=== PATIENT | male | born 1985 | race Caucasian/White ===

== ENCOUNTER 2016-11-29 19:24 | Emergency (ER) | payer BC, OTHER ==
[2016-11-29 19:41] VITALS: BP 135/91; PULSE 98; TEMP 98.4; BMI 24.4
[2016-11-29] MEDS ORDERED: SODIUM CHLORIDE 1,000 ML IV STA (20:03)
[2016-11-29] MEDS ORDERED: METOCLOPRAMIDE HCL INJECTION 10 MG/2 ML VIAL IVPB ONE (20:03)
--- NOTE | 2016-11-29 20:19 | PDOC ---
History of Present Illness - General Chief Complaint: Substance Abuse Stated Complaint: NOT FEELING GOOD Time Seen by Provider: 11/29/16 19:56 History Source: Patient Exam Limitations: No Limitations - History of Present Illness Initial Comments: 11/29/16 20:14 31yo Male patient w/ PmHx: Seizures, presents to ED c/o feeling funny after consuming "shrooms" (Mushrooms w drug Psilocin and Psilocybin) today around 6pm. Patient states he is concerns with how he is feeling because of his history of seizures. Associated nausea. Reports drug use daily: Marijuana to "manage seizures." Patient denies CP, Abd pain, vomiting/diarrhea, fever, back pain, confusion, disorientation, diff breathing, or any other complaints at this time. Timing/Duration: 4-6 hours Associated Symptoms: denies: denies symptoms, chest pain, cough, diaphoresis, fever/chills, headaches, loss of appetite, malaise, nausea/vomiting, rash, seizure, shortness of breath, syncope, weakness, other Past History - Travel Traveled outside of the country in the last 30 days: No Close contact w/someone who was outside of country & ill: No - Past Medical History Allergies/Adverse Reactions: Allergies Allergy/AdvReac Type Severity Reaction Status Date / Time codeine Allergy Verified 11/29/16 19:38 Home Medications: Ambulatory Orders Clonazepam [Klonopin] 1 mg PO TID 10/11/15 Docusate Sodium [Colace -] 100 mg PO BID PRN #60 capsule 12/10/15 Lamotrigine [LaMICtal -] 100 mg PO BID #60 tablet 12/10/15 Oxycodone HCl/Acetaminophen [Percocet 5-325 mg Tablet] 1 - 2 tab PO Q6H #30 tab MDD 4 12/10/15 Psychiatric Problems: Yes (anxiety, BIPOLAR) 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) Thyroid Disease: No Lung CA: (DENIES) - Immunization History Td Vaccination: Yes TDAP Vaccination: Yes (07/02/13) Immunization Up to Date: Yes - Psycho/Social/Smoking Cessation Hx Anxiety: Yes Suicidal Ideation: No Smoking Status: No Smoking History: Never smoked Years of Tobacco Use: 0 Have you smoked in the past 12 months: No Number of Cigarettes Smoked Daily: 1 If you are a former smoker, when did you quit?: 2000 Cigars Per Day: 0 'Breaking Loose' booklet given: 11/01/15 Hx Alcohol Use: No Drug/Substance Use Hx: Yes Substance Use Type: None Review of Systems - Review of Systems Able to Perform ROS?: Yes Is the patient limited Italian proficient: No Constitutional: Yes: Other ("Feeling Funny"). No: Chills, Fever, Weakness HEENTM: Yes: Other (Dry Mouth). No: Nose Congestion, Nose Bleeding, Mouth Pain , Difficulty Swallowing, Mouth Swelling Respiratory: No: Cough, Shortness of Breath, Stridor, Wheezing, Productive cough Cardiac (ROS): No: Chest Pain, Lightheadedness, Palpitations, Syncope, Chest Tightness ABD/GI: Yes: Nausea. No: Constipated, Diarrhea, Poor Appetite, Poor Fluid Intake, Vomiting : No: Dysuria, Flank Pain, Hematuria Musculoskeletal: No: Back Pain Integumentary: No: Erythema, Pruritus, Rash, Sweating Neurological: Yes: Seizure (History of). No: Headache, Weakness, Unsteady Gait , Ataxia Psychiatric: Yes: Anxiety All Other Systems: Reviewed and Negative *Physical Exam - Vital Signs Last Vital Signs Temp Pulse Resp BP Pulse Ox 98.4 F 98 H 20 135/91 95 11/29/16 19:39 11/29/16 19:39 11/29/16 19:39 11/29/16 19:39 11/29/16 19:39 - Physical Exam General Appearance: Yes: Nourished, Appropriately Dressed. No: Apparent Distress, Mild Distress, Moderate Distress, Severe Distress HEENT: positive: EOMI, PRANAV (Pupils Dilated 5mm), Normal ENT Inspection, Normal Voice, Symmetrical, TMs Normal, Pharynx Normal. negative: Pharyngeal Erythema, Tonsillar Exudate, Tonsillar Erythema, Nasal Congestion, Rhinorrhea, TM Bulging , TM Dull, TM Erythema Neck: positive: Trachea midline, Normal Thyroid, Supple. negative: Stridor, Lymphadenopathy (R), Lymphadenopathy (L) Respiratory/Chest: positive: Lungs Clear, Normal Breath Sounds. negative: Respiratory Distress, Accessory Muscle Use, Labored Respiration, Rapid RR, Rhonchi, Stridor, Wheezing Cardiovascular: positive: Regular Rhythm, Regular Rate Gastrointestinal/Abdominal: positive: Normal Bowel Sounds, Flat, Soft. negative : Distended, Guarding, Rebound, Tenderness Musculoskeletal: positive: Normal Inspection. negative: CVA Tenderness Extremity: positive: Normal Capillary Refill, Normal Inspection, Normal Range of Motion. 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 Labs WNL. Patient up walking around in hallway. No acute distress noted. *DC/Admit/Observation/Transfer Diagnosis at time of Disposition: Substance abuse, daily use - Discharge Dispostion Disposition: HOME Condition at time of disposition: Improved Admit: No - Patient Instructions Printed Discharge Instructions: DI for Anxiety -- Adult Additional Instructions: FOLLOW UP WITH YOUR PRIMARY CARE PROVIDER THIS WEEK FOR FURTHER EVALUATION. RETURN IF SYMPTOMS WORSEN OR ANY CONCERNS FOR FURTHER EVALUATION. STOP USING RECREATIONAL DRUGS WITH YOUR HISTORY OF SEIZURES, THIS CAN PRECIPITATE AN ATTACK. Print Language: ALBANIAN
[2016-11-29 20:30] LABS: BASOPHIL 0.3 % (0-2.0); EOSINOPHIL 0.1 % (0-4.5); MCH 31.1 pg (25.7-33.7); MCHC 34.2 g/dl (32.0-35.9); MEAN CELL VOLUME 90.8 fl (80-96); MEAN PLT VOLUME 8.3 fl (7.5-11.1); NEUTROPHILS 86.8 % (42.8-82.8); PLATELET COUNT 230 K/MM3 (134-434); RDW 13.1 % (11.9-15.9); WHITE BLOOD COUNT 14.7 K/mm3 (4.0-10.0)
[2016-11-29] MEDS ORDERED: METOCLOPRAMIDE HCL INJECTION 10 MG/2 ML VIAL ONE (20:30)
[2016-11-29 20:33] LABS: URINE APPEARANCE CLEAR; URINE BILIRUBIN NEGATIVE (NEGATIVE); URINE BLOOD NEGATIVE (NEGATIVE); URINE COLOR LTYELLOW; URINE GLUCOSE (UA) NEGATIVE (NEGATIVE); URINE KETONE NEGATIVE (NEGATIVE); URINE LEUK ESTERASE NEGATIVE (NEGATIVE); URINE NITRITE NEGATIVE (NEGATIVE); URINE PROTEIN NEGATIVE (NEGATIVE); URINE UROBILINOGEN NEGATIVE E.U./dl (0.2-1.0)
[2016-11-29 21:06] LABS: URINE MARIJUANA THC POSITIVE ng/ml (CUTOFF=50)
[2016-11-29 21:16] LABS: ALBUMIN 4.7 g/dl (3.4-5.0); AMYLASE 54 U/L (25-115); ANION GAP 9 (8-16); CALCIUM 9.2 mg/dL (8.5-10.1); CO2 29 mmol/L (21-32); COCKROFT - GAULT 152.96; CREATININE 0.8 mg/dL (0.7-1.3); GLUCOSE,RANDOM 116 mg/dL (74-106); SGOT/AST 17 U/L (15-37); SGPT/ALT 26 U/L (12-78)
[2016-11-29 21:18] LABS: ALK PHOS 106 U/L (45-117); BILIRUBIN,TOTAL 0.3 mg/dL (0.2-1.0); TOT PROT 8.1 g/dl (6.4-8.2)
--- NOTE | 2016-11-30 12:27 | EKG ---
Test Reason : Blood Pressure : / mmHG Vent. Rate : 071 BPM Atrial Rate : 071 BPM P-R Int : 126 ms QRS Dur : 102 ms QT Int : 390 ms P-R-T Axes : 060 062 035 degrees QTc Int : 423 ms NORMAL SINUS RHYTHM EARLY REPOLARIZATION WHEN COMPARED WITH ECG OF 07-DEC-2015 18:29, NO SIGNIFICANT CHANGE WAS FOUND Confirmed by LUIS EDUARDO DAVALOS MD ([id number]) on 11/30/2016 12:26:38 PM Referred By: Confirmed By:LUIS EDUARDO DAVALOS MD
== END 2016-11-29 22:13 | disposition home or self-care (01) ==
LOC: JER 19:24
PROC: 3E033GC Introduction of Other Therapeutic Substance into Peripheral Vein, Percutaneous Approach (ICD-10-PCS; principal; 2016-11-29)
DX: F12.10 Cannabis abuse, uncomplicated (principal); Z86.69 Personal history of other diseases of the nervous system and sense organs
CPT/HCPCS: 36415; 80053; 80307; 81003; 82150; 83690; 85025; 93005; 93010; 99282-25

== ENCOUNTER 2017-01-01 16:58 | Emergency (ER) | payer BC ==
[2017-01-01 17:02] VITALS: BP 123/86; PULSE 100; TEMP 98.2; BMI 23.7
[2017-01-01] MEDS ORDERED: SULFAMETHOXAZOLE/TRIMETHOPRIM 800MG/160MG D.S. TABLET PO ONE (17:32)
[2017-01-01] MEDS ORDERED: SULFAMETHOXAZOLE/TRIMETHOPRIM 800MG/160MG D.S. TABLET ONE ×2 (17:35→17:38)
--- NOTE | 2017-01-01 17:41 | PDOC ---
History of Present Illness - General Chief Complaint: Bite Stated Complaint: SPIDER BITE Time Seen by Provider: 01/01/17 17:03 History Source: Patient Exam Limitations: No Limitations - History of Present Illness Initial Comments: 01/01/17 17:34 31 yr male with c/o bites to left lower leg at work this am. 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 Pt has no history of MRSA, no medical history no allergies. Past History - Past Medical History Allergies/Adverse Reactions: Allergies Allergy/AdvReac Type Severity Reaction Status Date / Time codeine Allergy Verified 01/01/17 17:03 Home Medications: Ambulatory Orders Clonazepam [Klonopin] 1 mg PO TID 10/11/15 Docusate Sodium [Colace -] 100 mg PO BID PRN #60 capsule 12/10/15 Lamotrigine [LaMICtal -] 100 mg PO BID #60 tablet 12/10/15 Oxycodone HCl/Acetaminophen [Percocet 5-325 mg Tablet] 1 - 2 tab PO Q6H #30 tab MDD 4 12/10/15 Sulfamethoxazole/Trimethoprim [Bactrim Ds -] 1 tab PO BID #20 tablet 01/01/17 Psychiatric Problems: Yes (anxiety, BIPOLAR) 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) Thyroid Disease: No Lung CA: (DENIES) - Immunization History Td Vaccination: Yes TDAP Vaccination: Yes (07/02/13) Immunization Up to Date: Yes - Psycho/Social/Smoking Cessation Hx Anxiety: Yes Suicidal Ideation: No Smoking Status: No Smoking History: Never smoked Years of Tobacco Use: 0 Have you smoked in the past 12 months: No Number of Cigarettes Smoked Daily: 1 If you are a former smoker, when did you quit?: 2000 Cigars Per Day: 0 Information on smoking cessation initiated: No 'Breaking Loose' booklet given: 11/01/15 Hx Alcohol Use: No Drug/Substance Use Hx: Yes Substance Use Type: None *Physical Exam - Vital Signs Last Vital Signs Temp Pulse Resp BP Pulse Ox 98.2 F 100 H 18 123/86 98 01/01/17 16:59 01/01/17 16:59 01/01/17 16:59 01/01/17 16:59 01/01/17 16:59 - Physical Exam General Appearance: Yes: Nourished, Appropriately Dressed HEENT: positive: EOMI, PRANAV, Normal ENT Inspection, TMs Normal, Pharynx Normal Neck: positive: Supple. negative: Tender Respiratory/Chest: positive: Lungs Clear, Normal Breath Sounds Cardiovascular: positive: Regular Rhythm, Regular Rate Musculoskeletal: positive: Normal Inspection Extremity: positive: Normal Capillary Refill, Normal Range of Motion, Other ( left lateral lower leg with 2 papules erythematous well demarcated with white centers ) Integumentary: positive: Normal Color, Dry, Warm Neurologic: positive: pension adviser II-XII NML intact, Fully Oriented, Alert, Normal Mood/ Affect Medical Decision Making - Medical Decision Making 01/01/17 17:55 cc: spider bite 2 red raised papules to lower left leg with erythema , approximately 1cm and 2cm round. well demarcated with white centers raised no fever or chills, may be spider bite or MRSA infection will place on bactrim elevate apply warm compresses and return in 48hrs for wound check the areas have been marked with black marking pen, pt is aware to keep dry not to get wet or wash off pt understands the importance of strict follow up and to return sooner if any fever, chills redness streaking up the leg *DC/Admit/Observation/Transfer Diagnosis at time of Disposition: Cellulitis Qualifiers: Site of cellulitis: extremity Site of cellulitis of extremity: lower extremity Laterality: left Qualified Code(s): L03.116 - Cellulitis of left lower limb - Discharge Dispostion Disposition: HOME Condition at time of disposition: Good - Prescriptions Prescriptions: Sulfamethoxazole/Trimethoprim [Bactrim Ds -] 1 tab PO BID #20 tablet - Referrals Referrals: Crispin Gan MD [Primary Care Provider] - - Patient Instructions Printed Discharge Instructions: DI for Insect Bites and Stings Additional Instructions: apply warm compresses to the area of pain and swelling, elevate the leg and keep dry take the bactrim as directed for 10 days Return here ThursdayJanuary 03 for a wound check Return sooner if any fever, chills, redness spreading up your leg or any other concerns
== END 2017-01-01 18:00 | disposition home or self-care (01) ==
LOC: JERFT 16:58
DX: L03.116 Cellulitis of left lower limb (principal); Z87.891 Personal history of nicotine dependence; F41.9 Anxiety disorder, unspecified; F31.9 Bipolar disorder, unspecified
CPT/HCPCS: 99281-25

== ENCOUNTER 2018-04-15 17:16 | Emergency (ER) | payer BC ==
[2018-04-15 17:20] VITALS: BP 121/70; PULSE 83; TEMP 98; BMI 20.9
--- NOTE | 2018-04-15 17:38 | PDOC ---
History of Present Illness - General Chief Complaint: Wound Stated Complaint: RT LEG PAIN Time Seen by Provider: 04/15/18 17:29 History Source: Patient Exam Limitations: No Limitations - History of Present Illness Initial Comments: CHIEF COMPLAINT: 32 y/o afebrile male with right leg redness and pain. HISTORY OF PRESENT ILLNESS: The patient has a history of cellulitis on his legs and states he scratched one of the pimples on his right leg and now the area is swollen and raised. He denies fever, streaking. Vital signs on arrival are within normal limits. REVIEW OF SYSTEMS: GENERAL/CONSTITUTIONAL: No fever/chills. No weakness. No weight change. MUSCULOSKELETAL: +swelling and redness to right lower leg. No neck or back pain. SKIN: No rash or easy bruising. NEUROLOGIC: No headache, vertigo, loss of consciousness, or loss of sensation. PHYSICAL EXAM: GENERAL: The patient is awake, alert, and fully oriented, in no acute distress. HEAD: Normal with no signs of trauma. EXTREMITIES: Normal range of motion, no edema. 5cm in diameter raised area of erythema on right posterior proximal calf with central white head. scattered papules on b/l LEs. No streaking. NEUROLOGICAL: Normal speech, normal gait. CN II-XII grossly intact. SKIN: Warm, dry, normal turgor, no rashes or lesions noted. Past History - Past Medical History Allergies/Adverse Reactions: Allergies Allergy/AdvReac Type Severity Reaction Status Date / Time codeine Allergy Verified 04/15/18 17:17 Home Medications: Ambulatory Orders Clonazepam [Klonopin] 1 mg PO TID 10/11/15 Benzoyl Perox/Skin Clnsr/Emoll [Acnefree Severe Acne Clr Systm] 1 each TP DAILY #1 kit 04/15/18 Mupirocin Cream [Bactroban 2% Cream -] 1 applic TP BID #1 tube 04/15/18 Sulfamethoxazole/Trimethoprim [Bactrim Ds -] 1 tab PO BID #20 tablet 04/15/18 COPD: No Psychiatric Problems: Yes (anxiety, BIPOLAR) 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) Thyroid Disease: No Lung CA: (DENIES) - Immunization History Td Vaccination: Yes TDAP Vaccination: Yes (07/02/13) Immunization Up to Date: Yes - Suicide/Smoking/Psychosocial Hx Smoking Status: No Smoking History: Former smoker Years of Tobacco Use: 0 Have you smoked in the past 12 months: No Number of Cigarettes Smoked Daily: 1 If you are a former smoker, when did you quit?: 2000 Cigars Per Day: 0 Information on smoking cessation initiated: No 'Breaking Loose' booklet given: 11/01/15 Hx Alcohol Use: No Drug/Substance Use Hx: Yes Substance Use Type: None *Physical Exam - Vital Signs Last Vital Signs Temp Pulse Resp BP Pulse Ox 98 F 83 16 121/70 98 04/15/18 17:16 04/15/18 17:16 04/15/18 17:16 04/15/18 17:16 04/15/18 17:16 Medical Decision Making - Medical Decision Making A/P: 32 y/o male right leg folliculitis and cellulitis. Plan is to d/c with rx for bacitracin, bactroban and benzol peroxide wash. Instructed him to try to keep legs dry, follow up with Dr. Gan in 1 week and return to the ER with any worsening or concerning symptoms. The patient verbalizes understanding of all instructions, has no further questions and is awaiting discharge. *DC/Admit/Observation/Transfer Diagnosis at time of Disposition: Folliculitis Cellulitis Qualifiers: Site of cellulitis: extremity Site of cellulitis of extremity: lower extremity Laterality: right Qualified Code(s): L03.115 - Cellulitis of right lower limb - Discharge Dispostion Disposition: HOME Condition at time of disposition: Good - Prescriptions Prescriptions: Benzoyl Perox/Skin Clnsr/Emoll [Acnefree Severe Acne Clr Systm] 1 each TP DAILY #1 kit Mupirocin Cream [Bactroban 2% Cream -] 1 applic TP BID #1 tube Sulfamethoxazole/Trimethoprim [Bactrim Ds -] 1 tab PO BID #20 tablet - Referrals Referrals: Crispin Gan MD [Primary Care Provider] - - Patient Instructions Printed Discharge Instructions: DI for Cellulitis -- Adult, DI for Folliculitis Additional Instructions: Discharge Instructions: -3 prescriptions have been sent to your pharmacy; please use as directed -Try not to scratch the rash on your legs -Try to keep your legs dry -Follow up with your doctor in 1 week -Return to the ER with any worsening or concerning symptoms - Post Discharge Activity
== END 2018-04-15 17:49 | disposition home or self-care (01) ==
LOC: JERFT 17:16
DX: L03.115 Cellulitis of right lower limb (principal); L73.8 Other specified follicular disorders; F31.9 Bipolar disorder, unspecified; F41.9 Anxiety disorder, unspecified; Z87.820 Personal history of traumatic brain injury; R56.1 Post traumatic seizures; Z87.891 Personal history of nicotine dependence
CPT/HCPCS: 99281-25

== ENCOUNTER 2018-04-29 17:18 | Emergency (ER) | payer BC ==
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
[2018-04-29 17:48] VITALS: BP 143/96; PULSE 108; TEMP 98; BMI 20.9
[2018-04-29] MEDS ORDERED: DIPHTH,PERTUSS(ACELL),TET 0.5 ML DISP.SYRIN IM ONE (18:28)
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
== END 2018-04-29 18:58 | disposition home or self-care (01) ==
LOC: JER 17:18 → JERFT 17:18
PROC: 3E0234Z Introduction of Serum, Toxoid and Vaccine into Muscle, Percutaneous Approach (ICD-10-PCS; principal; 2018-04-29)
PROC: 0CQ0XZZ Repair Upper Lip, External Approach (ICD-10-PCS; 2018-04-29)
DX: S01.511A Laceration without foreign body of lip, initial encounter (principal); V49.59XA Passenger injured in collision with other motor vehicles in traffic accident, initial encounter; Y92.410 Unspecified street and highway as the place of occurrence of the external cause; Y93.89 Activity, other specified; Y99.8 Other external cause status
CPT/HCPCS: 90715; 99281-25

== ENCOUNTER 2018-05-06 10:39 | Emergency (ER) | payer BC ==
[2018-05-06 10:44] VITALS: BP 115/76; PULSE 100; TEMP 97.5; BMI 22.3
--- NOTE | 2018-05-06 11:21 | PDOC ---
Suture Removal/Wound Check HPI - History of Present Illness Chief Complaint: Suture/Staple Removal(Here) Stated Complaint: STAPLE/SUTURE REMOVAL (HERE) Time Seen by Provider: 05/06/18 11:09 History Source: Yes: Patient Treated at: [facility] ED - Previous ED Treatment Type of procedure performed on last visit: Yes: Laceration Repair Tetanus Immunization: Yes: Given at last ED visit Past History - Past Medical History Allergies/Adverse Reactions: Allergies Allergy/AdvReac Type Severity Reaction Status Date / Time codeine Allergy Verified 05/06/18 10:40 Home Medications: Ambulatory Orders Clonazepam [Klonopin] 1 mg PO TID 10/11/15 Chlorhexidine Gluconate [Peridex -] 15 ml MM BID #7 cup 05/06/18 COPD: No Psychiatric Problems: Yes (anxiety, BIPOLAR) 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) Thyroid Disease: No Lung CA: (DENIES) - Immunization History Td Vaccination: Yes TDAP Vaccination: Yes (07/02/13) Immunization Up to Date: Yes - Suicide/Smoking/Psychosocial Hx Smoking Status: No Smoking History: Never smoked Years of Tobacco Use: 0 Have you smoked in the past 12 months: No Number of Cigarettes Smoked Daily: 1 If you are a former smoker, when did you quit?: 2000 Cigars Per Day: 0 Information on smoking cessation initiated: No 'Breaking Loose' booklet given: 11/01/15 Hx Alcohol Use: No Drug/Substance Use Hx: Yes (benzo,klonopin) Substance Use Type: None Suture Removal/Wound Check PE - Physical Exam Laceration/Wound Check Symptoms: reports: None Current Severity Level: Mild Pain Localization: None Location of Laceration/Wound: left: Mouth (wound erythematous with small amoutn drainage) *Review of Systems - Review of Systems Able to Perform ROS?: Yes HEENTM: Yes: Other (lip swelling. no facial edema/ erythema) *Physical Exam - Vital Signs Last Vital Signs Temp Pulse Resp BP Pulse Ox 97.5 F L 100 H 18 115/76 100 05/06/18 10:41 05/06/18 10:41 05/06/18 10:41 05/06/18 10:41 05/06/18 10:41 - Physical Exam General Appearance: Yes: Appropriately Dressed HEENT: positive: Other (sutures intact. wound approximated, erythema to the suture site. ) Medical Decision Making - Medical Decision Making 05/06/18 11:37 3 sutures removed from upper lip. wound erythematous with pus? no facial swelling. *DC/Admit/Observation/Transfer Diagnosis at time of Disposition: Visit for suture removal - Discharge Dispostion Disposition: HOME - Prescriptions Prescriptions: Chlorhexidine Gluconate [Peridex -] 15 ml MM BID #7 cup - Referrals Referrals: Crispin Gan MD [Primary Care Provider] - - Patient Instructions Printed Discharge Instructions: DI for Suture Removal Additional Instructions: rinse your mouth with peridex twice daily. follow up with your doctor or dentist for a wound check in 2-3 days. - Post Discharge Activity
== END 2018-05-06 11:29 | disposition home or self-care (01) ==
LOC: JERFT 10:39
DX: Z48.817 Encounter for surgical aftercare following surgery on the skin and subcutaneous tissue (principal); Z48.02 Encounter for removal of sutures
CPT/HCPCS: 99281-25

== ENCOUNTER 2018-07-21 18:23 | Emergency (ER) | payer BC ==
--- NOTE | 2018-07-21 18:33 | PDOC ---
Rapid Medical Evaluation Medical Evaluation: Allergies Allergy/AdvReac Type Severity Reaction Status Date / Time codeine Allergy Verified 05/06/18 10:40 07/21/18 18:28 I have performed a brief in-person evaluation of this patient. The patient presents with a chief complaint of: L hip pain s/p fall today. H/o seizures, anxiety, substance abuse Pertinent physical exam findings: appears somnolent at triage (took klonopin tonight) I have ordered the following:hip film The patient will proceed to the ED for further evaluation 07/21/18 18:38 Discharge Disposition - Diagnosis Hip injury Qualifiers: Encounter type: initial encounter Laterality: left Qualified Code(s): S79.912A - Unspecified injury of left hip, initial encounter - Referrals - Patient Instructions - Post Discharge Activity
[2018-07-21 18:39] VITALS: BP 133/86; PULSE 97; TEMP 98; BMI 23.0
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
[2018-07-21] MEDS ORDERED: BACITRACIN 15 GM TUBE TOPICAL OINTMENT ONE (19:11)
[2018-07-21] MEDS ORDERED: BACITRACIN/POLYMYXIN B SULFATE 15 GM TUBE TP SCH (19:15)
== END 2018-07-21 19:24 | disposition home or self-care (01) ==
LOC: JERFT 18:23
DX: S79.912A Unspecified injury of left hip, initial encounter (principal); S30.1XXA Contusion of abdominal wall, initial encounter; Z87.891 Personal history of nicotine dependence; W18.39XA Other fall on same level, initial encounter; Y93.89 Activity, other specified; Y92.009 Unspecified place in unspecified non-institutional (private) residence as the place of occurrence of the external cause
CPT/HCPCS: 73523-TC-FY; 99281-25

== ENCOUNTER 2018-10-28 10:33 | Emergency (ER) | payer OTHER, BC ==
[2018-10-28 10:38] VITALS: BP 133/89; PULSE 81; TEMP 98.6; BMI 24.4
[2018-10-28] MEDS ORDERED: IBUPROFEN 400 MG TABLET (FP) PO ONE ×2 (11:01→11:05)
--- NOTE | 2018-10-28 11:09 | PDOC ---
History of Present Illness - General Chief Complaint: Injury Stated Complaint: Injury/ Work Related Time Seen by Provider: 10/28/18 10:49 History Source: Patient Exam Limitations: Clinical Condition - History of Present Illness Initial Comments: 10/28/18 11:04 Patient with no significant past medical history present with complaint of superficial abrasion to left lower leg above ankle from a metal plate while at work today. Patient reported a metal plate fell hitting him in left leg and causing abrasion to the leg. Patient reported increased pain to lower leg with ambulation. Last tetanus vaccine was 4 years ago. Denies any other symptoms Timing/Duration: 1-3 hours Past History - Past Medical History Allergies/Adverse Reactions: Allergies Allergy/AdvReac Type Severity Reaction Status Date / Time codeine Allergy Verified 10/28/18 10:38 Opioids - Morphine Analogues Allergy Verified 10/28/18 10:38 Opioids-Meperidine and Allergy Verified 10/28/18 10:38 Related Opioids-Methadone and Related Allergy Verified 10/28/18 10:38 Home Medications: Ambulatory Orders Clonazepam [Klonopin] 1 mg PO TID 10/11/15 Chlorhexidine Gluconate [Peridex -] 15 ml MM BID #7 cup 05/06/18 Cephalexin Monohydrate [Keflex -] 500 mg PO BID 7 Days #14 capsule 10/28/18 Mupirocin Ointment [Bactroban 2% Ointment -] 1 applic TP BID #1 tube 10/28/18 COPD: No Psychiatric Problems: Yes (anxiety, BIPOLAR) 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) Thyroid Disease: No Lung CA: (DENIES) - Immunization History Td Vaccination: Yes TDAP Vaccination: Yes (07/02/13) Immunization Up to Date: Yes - Suicide/Smoking/Psychosocial Hx Smoking Status: No Smoking History: Never smoked Years of Tobacco Use: 0 Have you smoked in the past 12 months: No Number of Cigarettes Smoked Daily: 1 If you are a former smoker, when did you quit?: 2000 Cigars Per Day: 0 Information on smoking cessation initiated: No 'Breaking Loose' booklet given: 11/01/15 Hx Alcohol Use: No Drug/Substance Use Hx: No Substance Use Type: None Review of Systems - Review of Systems Able to Perform ROS?: Yes Is the patient limited [place]an proficient: No Constitutional: No: Weakness HEENTM: No: Symptoms Reported Respiratory: No: Symptoms reported Cardiac (ROS): No: Symptoms Reported Musculoskeletal: Yes: Symptoms Reported, See HPI, Muscle Pain (left lower leg), Other (abrasion to medial aspect of left lower leg above ankle) Integumentary: Yes: See HPI, Other (superficial linear abrasion to medial aspect of left lower leg) *Physical Exam - Vital Signs Last Vital Signs Temp Pulse Resp BP Pulse Ox 98.6 F 81 17 133/89 100 10/28/18 10:36 10/28/18 10:36 10/28/18 10:36 10/28/18 10:36 10/28/18 10:36 - Physical Exam Comments: 10/28/18 11:07 GENERAL: Well developed, well nourished. Awake and alert. No acute distress. CARDIOVASCULAR: Regular rate and rhythm. No murmurs, rubs, or gallops. PULMONARY: No evidence of respiratory distress. Lungs clear to auscultation bilaterally. No wheezing, rales or rhonchi. ABDOMINAL: Soft. Non-tender. Non-distended. No rebound or guarding. No organomegaly. Normoactive bowel sounds MUSCULOSKELETAL : mild tenderness over medial aspect of left lower leg above ankle with 4 cm linear superficial abrasion to medial aspect of left lower leg. No bleeding from abrasion site. No bony deformities SKIN: Warm and dry. Normal capillary refill. 4 cm linear superficial abrasion to medial aspect of left lower leg above ankle without bleeding.. NEUROLOGICAL: Alert, awake, appropriate. No motor deficits in the lower extremities. Gait is normal without ataxia. PSYCHIATRIC: Cooperative. Good eye contact. Appropriate mood and affect. General Appearance: Yes: Nourished, Appropriately Dressed. No: Apparent Distress Moderate Sedation - Procedure Monitoring Vital Signs: Procedure Monitoring Vital Signs Temperature 98.6 F 10/28/18 10:36 Pulse Rate 81 10/28/18 10:36 Respiratory Rate 17 10/28/18 10:36 Blood Pressure 133/89 10/28/18 10:36 O2 Sat by Pulse Oximetry (%) 100 10/28/18 10:36 ED Treatment Course - RADIOLOGY Radiology Studies Ordered: Category Date Time Status LEG TIB/FIB-LEFT [RAD] Stat Radiology 10/28/18 11:01 Ordered Medical Decision Making - Medical Decision Making 10/28/18 11:09 Patient with no significant past medical history presenting with complaint of abrasion to left lower leg from a metal piece with pain to left lower leg from a metal piece hitting his left leg. Symptoms exam significant for 4 cm linear superficial abrasion to medial aspect of left lower leg medial aspect of Schilling of left leg without bleeding. Wound cleaned with Betadine and bacitracin applied to wound. Wound covered with adhesive bandage. X-ray of tib-fib ordered to rule out fracture. Patient be discharged home on Keflex antibiotics if negative x-ray for wound infection prophylaxis and topical bacitracin 10/28/18 11:18 X-ray of tib-fib shows no acute pathology. Patient stable for discharge *DC/Admit/Observation/Transfer Diagnosis at time of Disposition: Abrasion, left lower leg, initial encounter, Left leg pain - Discharge Dispostion Disposition: HOME Condition at time of disposition: Stable Decision to Admit order: No - Prescriptions Prescriptions: Cephalexin Monohydrate [Keflex -] 500 mg PO BID 7 Days #14 capsule Mupirocin Ointment [Bactroban 2% Ointment -] 1 applic TP BID #1 tube - Referrals Referrals: Crispin Gan MD [Primary Care Provider] - - Patient Instructions Printed Discharge Instructions: DI for Abrasion Additional Instructions: Your x-ray shows no fracture. Take Motrin as needed for pain. Take prescribed cream and apply to wound twice/day until completely healed. And take prescribed antibiotics and finish it. Follow-up with primary care as needed - Post Discharge Activity Forms/Work/School Notes: Back to Work
== END 2018-10-28 11:30 | disposition home or self-care (01) ==
LOC: JERFT 10:33
DX: S80.812A Abrasion, left lower leg, initial encounter (principal); W20.8XXA Other cause of strike by thrown, projected or falling object, initial encounter; Y93.89 Activity, other specified; Y92.69 Other specified industrial and construction area as the place of occurrence of the external cause; Y99.0 Civilian activity done for income or pay
CPT/HCPCS: 73590-TC-LT-FY; 99281-25

== ENCOUNTER 2018-11-06 00:26 | Emergency (ER) | payer BC, OTHER ==
[2018-11-06 00:38] VITALS: BP 133/96; PULSE 85; TEMP 98.2; BMI 23.3
[2018-11-06] MEDS ORDERED: CLINDAMYCIN 600MG PREMIX IVPB 600 MG/50 ML BAG IVPB ONE ×2 (00:44→01:17)
[2018-11-06] MEDS ORDERED: VANCOMYCIN 1,000 MG in DEXTROSE 5%-WATER - 250 ML IVPB ONE (00:44)
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
[2018-11-06] MEDS ORDERED: VANCOMYCIN 1 GRAM (PRE-DOCKED) 1,000 MG/250 ML BAG IVPB ONE (01:17)
[2018-11-06 01:22] LABS: BASO % 0.6 % (0-2.0); EOS % 0.5 % (0-4.5); HEMOGLOBIN 14.9 GM/dL (11.7-16.9); LYMPH % 17.3 % (8-40); MCH 32.4 pg (25.7-33.7); MCHC 34.5 g/dl (32.0-35.9); MEAN CELL VOLUME 93.8 fl (80-96); MEAN PLT VOLUME 7.4 fl (7.5-11.1); MONO % 7.9 % (3.8-10.2); NEUT % 73.7 % (42.8-82.8); PLATELET COUNT 239 K/MM3 (134-434); RBC 4.59 M/mm3 (4.00-5.60); RDW 12.4 % (11.9-15.9); WHITE BLOOD COUNT 10.6 K/mm3 (4.0-10.0)
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
[2018-11-06 02:17] LABS: ALBUMIN 4.5 g/dl (3.4-5.0); ALK PHOS 81 U/L (45-117); ANION GAP 9 MMOL/L (8-16); BILIRUBIN,TOTAL 0.3 mg/dL (0.2-1); BLOOD UREA NITROGEN 11 mg/dL (7-18); CALCIUM 9.1 mg/dL (8.5-10.1); CHLORIDE 105 mmol/L (98-107); CO2 23 mmol/L (21-32); CREATININE 0.8 mg/dL (0.55-1.3); GLUCOSE,RANDOM 102 mg/dL (74-106); POTASSIUM 4.1 mmol/L (3.5-5.1); SGOT/AST 21 U/L (15-37); SGPT/ALT 37 U/L (13-61); SODIUM 137 mmol/L (136-145); TOT PROT 7.9 g/dl (6.4-8.2)
== END 2018-11-06 02:25 | disposition home or self-care (01) ==
LOC: JER 00:26
PROC: 0HQBXZZ Repair Right Upper Arm Skin, External Approach (ICD-10-PCS; principal; 2018-11-06)
PROC: 3E03329 Introduction of Other Anti-infective into Peripheral Vein, Percutaneous Approach (ICD-10-PCS; 2018-11-06)
PROC: 3E03329 Introduction of Other Anti-infective into Peripheral Vein, Percutaneous Approach (ICD-10-PCS; 2018-11-06)
DX: S41.151A Open bite of right upper arm, initial encounter (principal); Y04.1XXA Assault by human bite, initial encounter; Y93.89 Activity, other specified; Y92.89 Other specified places as the place of occurrence of the external cause; Y99.8 Other external cause status
CPT/HCPCS: 36415; 80053; 85025; 99282-25

== ENCOUNTER 2018-11-13 13:41 | Emergency (ER) | payer BC ==
[2018-11-13 13:46] VITALS: BP 144/80; PULSE 73; TEMP 98.2; BMI 21.5
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
== END 2018-11-13 14:41 | disposition home or self-care (01) ==
LOC: JERFT 13:41
DX: Y04.1XXA Assault by human bite, initial encounter (principal); Y04.1XXD Assault by human bite, subsequent encounter; Y93.89 Activity, other specified; Y92.59 Other trade areas as the place of occurrence of the external cause; Y99.8 Other external cause status
CPT/HCPCS: 99281-25

== ENCOUNTER 2018-11-15 20:16 | Observation (INO) | payer BC ==
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
[2018-11-15] MEDS ORDERED: SODIUM CHLORIDE 1,000 ML IV STA (21:18)
[2018-11-15 22:28] LABS: BASO % 0.7 % (0-2.0); EOS % 2.1 % (0-4.5); HEMATOCRIT 40.6 % (35.4-49); HEMOGLOBIN 14.1 GM/dL (11.7-16.9); LYMPH % 25.8 % (8-40); MCH 32.8 pg (25.7-33.7); MCHC 34.6 g/dl (32.0-35.9); MEAN CELL VOLUME 94.8 fl (80-96); MEAN PLT VOLUME 7.6 fl (7.5-11.1); MONO % 7.3 % (3.8-10.2); NEUT % 64.1 % (42.8-82.8); PLATELET COUNT 287 K/MM3 (134-434); RBC 4.28 M/mm3 (4.00-5.60); RDW 12.9 % (11.9-15.9); WHITE BLOOD COUNT 8.8 K/mm3 (4.0-10.0)
[2018-11-15] MEDS ORDERED: VANCOMYCIN 1 GM in D5W (PRE-DOCKED) 1,000 MG/250 ML IVPB ONE (22:30)
[2018-11-15] MEDS ORDERED: PIPERACILLIN/TAZOBACTAM 4.5 GM VIAL IVPB ONE (22:30)
[2018-11-15 23:02] LABS: ALK PHOS 86 U/L (45-117); ANION GAP 8 MMOL/L (8-16); BILIRUBIN,TOTAL 0.2 mg/dL (0.2-1); BLOOD UREA NITROGEN 18 mg/dL (7-18); CALCIUM 8.9 mg/dL (8.5-10.1); CHLORIDE 100 mmol/L (98-107); CO2 31 mmol/L (21-32); GLUCOSE,RANDOM 128 mg/dL (74-106); POTASSIUM 4.1 mmol/L (3.5-5.1); SGOT/AST 21 U/L (15-37); SGPT/ALT 36 U/L (13-61); SODIUM 138 mmol/L (136-145); TOT PROT 7.1 g/dl (6.4-8.2)
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
[2018-11-15] MEDS ORDERED: VANCOMYCIN 1 GRAM (PRE-DOCKED) 1,000 MG/250 ML BAG IVPB ONE (23:52)
[2018-11-15] MEDS ORDERED: ACETAMINOPHEN 325 MG TABLET (FP) PO PRN (23:57)
[2018-11-16] MEDS ORDERED: clonazePAM 0.5 MG TABLET PO PRN (00:01)
[2018-11-16] MEDS: MUPIROCIN 2% TOPICAL OINTMENT 22 GM TUBE TP SCH ×3 (01:07→23:48)
[2018-11-16] MEDS ORDERED: PIPERACILLIN/TAZOB 4.5 GM 4.5 GM/100 ML BAG IVPB ONE (01:10)
[2018-11-16] MEDS: PIPERACILLIN/TAZOB 3.375 GM 3.375 GM in DEXTROSE 5%-WATER - 50 ML IVPB SCH ×3 (03:19→18:12)
[2018-11-16 07:24] LABS: BASO % 0.9 % (0-2.0); EOS % 2.1 % (0-4.5); HEMATOCRIT 38.5 % (35.4-49); HEMOGLOBIN 13.3 GM/dL (11.7-16.9); LYMPH % 28.5 % (8-40); MCH 32.6 pg (25.7-33.7); MCHC 34.6 g/dl (32.0-35.9); MEAN CELL VOLUME 94.2 fl (80-96); MEAN PLT VOLUME 7.6 fl (7.5-11.1); MONO % 8.9 % (3.8-10.2); NEUT % 59.6 % (42.8-82.8); PLATELET COUNT 248 K/MM3 (134-434); RBC 4.08 M/mm3 (4.00-5.60); RDW 12.6 % (11.9-15.9); WHITE BLOOD COUNT 6.6 K/mm3 (4.0-10.0)
[2018-11-16 07:50] LABS: ANION GAP 4 MMOL/L (8-16); BLOOD UREA NITROGEN 18 mg/dL (7-18); CALCIUM 8.8 mg/dL (8.5-10.1); CHLORIDE 103 mmol/L (98-107); CO2 31 mmol/L (21-32); CREATININE 0.9 mg/dL (0.55-1.3); GLUCOSE,RANDOM 92 mg/dL (74-106); MAGNESIUM 2.1 mg/dL (1.8-2.4); POTASSIUM 4.5 mmol/L (3.5-5.1); SODIUM 138 mmol/L (136-145)
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
[2018-11-16] MEDS ORDERED: PIPERACILLIN/TAZOB 3.375 GM 3.375 GM/50 ML BAG IVPB ONE ×2 (11:18→17:17)
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
[2018-11-16] MEDS ORDERED: VANCOMYCIN 1,000 MG in DEXTROSE 5%-WATER - 250 ML IVPB SCH (13:45)
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
[2018-11-16] MEDS ORDERED: VANCOMYCIN 1 GRAM (PRE-DOCKED) 1,000 MG/250 ML BAG IVPB ONE (14:11)
[2018-11-16] MEDS ORDERED: VANCOMYCIN 1 GM PREMIX - 1 GM/200 ML BAG IVPB ONE (17:00)
[2018-11-16] MEDS ORDERED: clonazePAM 0.5 MG TABLET ONE (17:15)
[2018-11-16] MEDS ORDERED: BACITRACIN 0.9 GM PACKET ONE (18:15)
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
[2018-11-16 22:43] VITALS: BMI 25.0
[2018-11-17] MEDS ORDERED: DEXTROSE 5%-WATER - 50 ML IVPB ONE ×3 (01:07→17:49)
[2018-11-17] MEDS ORDERED: PIPERACILLIN/TAZOBACTAM 3.375 GM VIAL IVPB ONE ×3 (01:07→17:49)
[2018-11-17] MEDS: PIPERACILLIN/TAZOB 3.375 GM 3.375 GM in DEXTROSE 5%-WATER - 50 ML IVPB SCH ×3 (01:50→18:51)
[2018-11-17] MEDS ORDERED: PT OWN MED DRAWER 7, Y5N ONE (03:51)
[2018-11-17] MEDS: VANCOMYCIN 1 GM PREMIX - 1 GM/200 ML BAG IVPB SCH ×2 (03:58→13:44)
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
[2018-11-17] MEDS: MUPIROCIN 2% TOPICAL OINTMENT 22 GM TUBE TP SCH ×2 (09:51→23:00)
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
[2018-11-18] MEDS ORDERED: PIPERACILLIN/TAZOBACTAM 3.375 GM VIAL IVPB ONE (00:57)
[2018-11-18] MEDS ORDERED: DEXTROSE 5%-WATER - 50 ML IVPB ONE (00:57)
[2018-11-18] MEDS: PIPERACILLIN/TAZOB 3.375 GM 3.375 GM in DEXTROSE 5%-WATER - 50 ML IVPB SCH (01:38)
[2018-11-18] MEDS: VANCOMYCIN 1 GM PREMIX - 1 GM/200 ML BAG IVPB SCH (01:40)
[2018-11-18] MEDS ORDERED: AMOX TR/POT CLAV 875MG/125MG TABLETS (FP) PO SCH (09:27)
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
[2018-11-18] MEDS: MUPIROCIN 2% TOPICAL OINTMENT 22 GM TUBE TP SCH (11:39)
[2018-11-18 12:55] VITALS: BP 123/75; PULSE 73; TEMP 97.8
== END 2018-11-18 12:45 | disposition home or self-care (01) ==
LOC: JER 20:16 → JERBED 23:38 → J8W 11-16 19:01
PROVIDERS: ADMIT Family Medicine; ATTEND Family Medicine
PROC: 3E03329 Introduction of Other Anti-infective into Peripheral Vein, Percutaneous Approach (ICD-10-PCS; principal; 2018-11-15)
PROC: 3E0337Z Introduction of Electrolytic and Water Balance Substance into Peripheral Vein, Percutaneous Approach (ICD-10-PCS; 2018-11-15)
DX: S41.051D Open bite of right shoulder, subsequent encounter (principal); L08.9 Local infection of the skin and subcutaneous tissue, unspecified; L03.113 Cellulitis of right upper limb; Y04.1XXD Assault by human bite, subsequent encounter; F41.9 Anxiety disorder, unspecified; F31.9 Bipolar disorder, unspecified; G40.89 Other seizures; Z91.14 Patient's other noncompliance with medication regimen; Z88.5 Allergy status to narcotic agent; Z88.6 Allergy status to analgesic agent
CPT/HCPCS: 36415; 80048; 80053; 83605; 83735; 84443; 85025; 86706; 86803; 87040; 87070; 87205; 87389; 99283-25; G0378; J7030

== ENCOUNTER 2020-08-22 14:53 | Emergency (ER) | payer OTHER, BC | END 2020-08-22 15:55 | disposition home or self-care (01) | LOC: JERFT 14:53 | CPT/HCPCS: 99282-25 ==

== ENCOUNTER 2020-09-11 18:24 | Emergency (ER) | payer OTHER, BC ==
[2020-09-11 18:38] VITALS: BP 148/99; PULSE 84; TEMP 98; BMI 23.0
== END 2020-09-11 20:53 | disposition home or self-care (01) ==
LOC: JER 18:24
DX: M25.531 Pain in right wrist (principal)
CPT/HCPCS: 73110-TC-RT-FY; 73130-TC-RT-FY; 99283-25

== ENCOUNTER 2021-05-24 07:25 | Emergency (ER) | payer BC, OTHER ==
[2021-05-24 07:59] VITALS: BP 125/80; PULSE 80; TEMP 98.2; BMI 26.4
[2021-05-24] MEDS ORDERED: TETRACAINE 0.5% HCL 0.6ML DROPPER.BOTTLE OD ONE (08:04)
[2021-05-24] MEDS ORDERED: FLUORESCEIN NA 1 EA STRIP OD ONE (08:05)
[2021-05-24] MEDS ORDERED: IBUPROFEN 600 MG TABLET (FP) PO ONE ×2 (08:05→08:13)
[2021-05-24] MEDS ORDERED: ERYTHROMYCIN 0.5% OPHTHALMIC OINTMENT 3.5 GM TUBE OS ONE (08:11)
[2021-05-24] MEDS ORDERED: TETRACAINE 0.5% OPHTH SOLN 2 ML BOTTLE ONE (08:13)
[2021-05-24] MEDS ORDERED: FLUORESCEIN NA 1 EA STRIP ONE (08:13)
[2021-05-24] MEDS ORDERED: ERYTHROMYCIN 0.5% OPHTHALMIC OINTMENT 3.5 GM TUBE ONE (08:13)
== END 2021-05-24 09:08 | disposition home or self-care (01) ==
LOC: JER 07:25 → JERFT 07:25
DX: S05.02XA Injury of conjunctiva and corneal abrasion without foreign body, left eye, initial encounter (principal); Y99.8 Other external cause status
CPT/HCPCS: 99283-25

== ENCOUNTER 2023-05-12 20:33 | Emergency (ER) | payer BC ==
[2023-05-12 20:42] VITALS: BP 113/74; PULSE 76; RESP 18; TEMP 98.1; BMI 23.0
[2023-05-12] MEDS ORDERED: DEXAMETHASONE SOD PHOSPHATE 10 MG/1 ML VIAL IM ONE (21:16)
[2023-05-12] MEDS ORDERED: hydrOXYzine PAMOATE 50 MG CAPSULE (FP) PO ONE (21:17)
[2023-05-12] MEDS ORDERED: DEXAMETHASONE SOD PHOSPHATE 10 MG/1 ML VIAL ONE (21:17)
[2023-05-12] MEDS ORDERED: hydrOXYzine PAMOATE 25 MG CAPSULE (FP) PO ONE (21:19)
== END 2023-05-12 21:36 | disposition home or self-care (01) ==
LOC: JERFT 20:33
PROC: 3E023GC Introduction of Other Therapeutic Substance into Muscle, Percutaneous Approach (ICD-10-PCS; principal; 2023-05-12)
DX: T63.441A Toxic effect of venom of bees, accidental (unintentional), initial encounter (principal); L23.9 Allergic contact dermatitis, unspecified cause
CPT/HCPCS: 99284-25; J1100

== ENCOUNTER 2023-09-19 20:18 | Emergency (ER) | payer BC ==
[2023-09-19 20:45] VITALS: BP 123/91; PULSE 82; RESP 18; TEMP 98.7; BMI 23.0
[2023-09-19] MEDS ORDERED: CLINDAMYCIN HCL 150 MG CAPSULE (FP) ONE (21:47)
[2023-09-19] MEDS: CLINDAMYCIN HCL 300 MG CAPSULE PO ONE (21:52)
== END 2023-09-19 23:21 | disposition home or self-care (01) ==
LOC: JER 20:18
DX: L03.011 Cellulitis of right finger (principal); L73.9 Follicular disorder, unspecified
CPT/HCPCS: 99283-25

== ENCOUNTER 2024-06-22 19:00 | Emergency (ER) | payer BC ==
[2024-06-22 19:07] VITALS: BP 127/80; PULSE 78; RESP 18; TEMP 98.4; BMI 20.9
== END 2024-06-22 21:22 | disposition home or self-care (01) ==
LOC: JERFT 19:00
DX: L73.9 Follicular disorder, unspecified (principal)
CPT/HCPCS: 36415; 87529; 99283-25

== ENCOUNTER 2024-12-09 15:37 | Emergency (ER) | payer BC ==
[2024-12-09 16:09] VITALS: BP 126/91; PULSE 66; RESP 18; TEMP 98.1; BMI 22.3
[2024-12-09] MEDS ORDERED: cloNIDine HCL 0.1 MG TABLET ONE (17:25)
[2024-12-09] MEDS: cloNIDine HCL 0.1 MG TABLET PO ONE (17:53)
[2024-12-09 17:57] LABS: ABSOLUTE IMMATURE GRANULOCYTES 0.03 x10^3/uL (0.0-0.031); BASOPHILS # 0.06 x10^3/uL (0.01-0.08); EOSINOPHILS # 0.09 x10^3/uL (0.04-0.54); HEMOGLOBIN 14.1 g/dL (13.7-17.5); MCHC 33.6 g/dl (32.3-36.5); MEAN CELL VOLUME 92.1 fl (79.0-92.2); MEAN PLT VOLUME 9.8 fl (9.4-12.4); MONOCYTE # 0.69 x10^3/uL (0.30-0.82); MONOCYTE % 7.5 % (5.3-12.2); PLATELET COUNT 308 x10^3/uL (163-337)
[2024-12-09 18:06] LABS: INR 1.15 (0.83-1.09); PROTHROMBIN TIME (PATIENT) 12.6 SEC (9.7-13.0)
[2024-12-09 18:08] LABS: ACTIVATED PTT 37.6 SECONDS (25.2-36.5)
[2024-12-09 18:15] LABS: CHLORIDE 105 mmol/L (98-107); POTASSIUM 4.2 mmol/L (3.5-5.1); SODIUM 139 mmol/L (136-145)
[2024-12-09 18:17] LABS: CALCIUM 10.2 mg/dL (8.5-10.1); MAGNESIUM 1.9 mg/dL (1.8-2.4)
[2024-12-09 18:18] LABS: ALBUMIN 4.5 g/dl (3.4-5.0); ANION GAP 6 mmol/L (4-13); BLOOD UREA NITROGEN 16.2 mg/dL (7-18); CO2 28 mmol/L (21-32); GLUCOSE,RANDOM 94 mg/dL (74-106)
[2024-12-09 18:20] LABS: CREATININE 0.7 mg/dL (0.55-1.3); SGOT/AST 17 U/L (15-37); SGPT/ALT 26 U/L (13-61)
[2024-12-09 18:22] LABS: TOT PROT 7.6 g/dl (6.4-8.2)
[2024-12-09 18:23] LABS: BILIRUBIN,TOTAL 0.4 mg/dL (0.2-1)
[2024-12-09 18:26] LABS: ALK PHOS 85 U/L (45-117)
[2024-12-09 19:12] LABS: HCV DIAGNOSTIC IN-HOUSE W/RFLX NON-REACTIVE (NONREACTIVE); HIV INTERPRETATION NEGATIVE (NEGATIVE)
[2024-12-09 19:13] LABS: URINE APPEARANCE CLEAR; URINE BILIRUBIN NEGATIVE (NEGATIVE); URINE COLOR YELLOW; URINE GLUCOSE (UA) NEGATIVE (NEGATIVE); URINE KETONE TRACE (NEGATIVE); URINE LEUK ESTERASE NEGATIVE (NEGATIVE); URINE NITRITE NEGATIVE (NEGATIVE); URINE PROTEIN NEGATIVE (NEGATIVE); URINE UROBILINOGEN 0.2 mg/dL (0.2-1.0)
[2024-12-09 19:20] LABS: ERYTHROCYTE SEDIMENTATION RATE 6 mm/hr (0-10)
== END 2024-12-09 20:05 | disposition home or self-care (01) ==
LOC: JER 15:37
DX: R20.2 Paresthesia of skin (principal)
CPT/HCPCS: 36415; 80053; 81003; 82550; 83735; 84484; 85025; 85610; 85651; 85730; 86140; 86803; 87389; 93005; 93010; 99285-25

== ENCOUNTER 2025-02-14 11:47 | Emergency (ER) | payer BC ==
[2025-02-14 12:00] VITALS: BP 126/82; PULSE 65; RESP 16; TEMP 98.2; BMI 21.6
[2025-02-14 17:40] LABS: HIV INTERPRETATION NEGATIVE (NEGATIVE)
[2025-02-14 17:58] LABS: HCV DIAGNOSTIC IN-HOUSE W/RFLX NON-REACTIVE (NONREACTIVE)
== END 2025-02-14 13:04 | disposition home or self-care (01) ==
LOC: FER 11:47
DX: A56.8 Sexually transmitted chlamydial infection of other sites (principal); L73.9 Follicular disorder, unspecified
CPT/HCPCS: 36415; 86780; 86803; 87389; 87491; 87591; 99284-25

== ENCOUNTER 2025-03-01 21:39 | Emergency (ER) | payer BC ==
[2025-03-01 21:44] VITALS: BP 129/87; PULSE 96; RESP 18; TEMP 98.2; BMI 23.0
== END 2025-03-01 22:42 | disposition home or self-care (01) ==
LOC: JERFT 21:39
DX: L23.7 Allergic contact dermatitis due to plants, except food (principal); B36.0 Pityriasis versicolor
CPT/HCPCS: 36415; 87491; 87591; 87661; 99283-25

== ENCOUNTER 2025-05-22 21:14 | Emergency (ER) | payer BC ==
[2025-05-22 21:19] VITALS: BP 134/88; PULSE 80; RESP 20; TEMP 98; BMI 22.3
== END 2025-05-22 21:51 | disposition home or self-care (01) ==
LOC: JERFT 21:14
DX: H11.31 Conjunctival hemorrhage, right eye (principal)
CPT/HCPCS: 99283-25